=== PATIENT | female | born 1945 | race Caucasian/White ===

== ENCOUNTER 2020-07-08 09:18 | Outpatient (CLI) | payer MEDICARE ==
--- NOTE | 2020-07-08 11:21 | MRI ---
BRAIN MRI WITH AND WITHOUT CONTRAST: HISTORY: Right-sided acoustic neuroma. COMPARISON: 11/24/2019. FINDINGS: Brain MRI: Hemorrhage: No parenchymal hemorrhage or extra-axial hematoma. Calvarium: Appropriate T1 marrow signal intensity. Midline brain parenchyma: Unremarkable. Cerebrum:No parenchymal mass, mass effect or midline shift. Confluent T2 and FLAIR white matter hyper intensities due to chronic small vessel ischemic change. Ventricles: No evidence of hydrocephalus. Sinuses and mastoid air cells: Adequate aeration. Diffusion: Central arterial flow is maintained. Absent restricted diffusion. Postcontrast images: No pathologic enhancement of the brain parenchyma. MRI of the internal auditory canals: Redemonstration of an intrinsic T1 isointense, T2 and FLAIR hyperintense focus with associated enhanc ement. This mass extends into the internal auditory canal. The majority the masses in the right cerebral pontine angle or cistern. Mass measures 2.3 x 2.7 cm. Previously, this mass measured 2.0 x 1 .4 cm. There does appear to be significant interval growth. There is mass effect upon the right brachium pontis and right cerebellum. There are no significant T2 or FLAIR hyperintensity to suggest vasogenic edema. IMPRESSION: Enlarging right acoustic neuroma. There is worsening mass effect upon the right brachium pontis and r ight cerebellum. No associated vasogenic edema. Transcribed Date/Time: 07/08/2020 11:54 AM
== END 2020-07-08 09:19 | disposition home or self-care (01) ==
LOC: SCSMRI 09:18
PROVIDERS: ATTEND Otolaryngology Otology & Neurotology
DX: D33.3 Benign neoplasm of cranial nerves (principal)
CPT/HCPCS: 70553; 82565